=== PATIENT | male | born 1945 | race Caucasian/White ===

== ENCOUNTER 2018-07-25 23:35 | Observation (INO) | payer MEDICARE ==
[~2018-07-25 23:35] MED LIST: ISOVUE-370 76%-LOCM 1 ML ONE
[2018-07-26] MEDS ORDERED: Morphine 4 MG/ML VIAL ONE ×2 (00:01→00:50)
[2018-07-26 00:13] LABS: #Eosinphils 0.1 thou/uL (0.0-0.7); #Monocytes 0.6 thou/uL (0.11-0.59); #Neutrophils 12.1 thou/uL (1.40-6.50); %Basophils 0.1 % (0.0-1.0); %Eosinophils 0.4 % (0.0-10.0); %Monocytes 4.2 % (0.0-10.0); %Neutrophils 88.3 % (42.0-75.0); Hemoglobin 14.7 g/dL (14.0-18.0); Mean Corpuscular HGB CONC 32.8 g/dL (32.0-36.0); Mean Corpuscular Hemoglobin 28.8 pg (27.0-31.0); Mean Corpuscular Volume 87.6 fL (78.0-98.0); Mean Platelet Volume 7.5 fL (7.4-10.4); Platelet Count 242 thou/uL (130-400); RBC Distribution Width 12.2 % (11.5-14.5); Red Blood Cell (RBC) Count 5.13 mill/uL (4.70-6.10); White Blood Cell (WBC) Count 13.7 thou/uL (4.8-10.8)
[2018-07-26 00:33] LABS: ALT (SGPT) 34 U/L (8-55); AST (SGOT) 23 U/L (5-34); Albumin 4.3 g/dL (3.4-4.8); Alkaline Phosphatase 170 U/L (40-150); Anion Gap 15 mmol/L (10-20); BUN (Urea Nitrogen) 26 mg/dL (8.4-25.7); Bilirubin, Total 1.3 mg/dL (0.2-1.2); Calc. Creatinine Clearance 0 mL/min (70-130); Calcium 10.2 mg/dL (7.8-10.44); Carbon Dioxide 25 mmol/L (23-31); Chloride 105 mmol/L (98-107); Estimated GFR-MDRD 75; Glucose 144 mg/dL (83-110); Lipase 17 U/L (8-78); Potassium 3.7 mmol/L (3.5-5.1); Protein, Total 7.3 g/dL (5.8-8.1); Sodium 141 mmol/L (136-145)
[2018-07-26 01:17] LABS: Bilirubin Negative (Negative); Blood, Urine Moderate (Negative); Clarity CLOUDY (Clear); Glucose, Urine (Dipstick) Negative (Negative); Leukocyte Negative (Negative); Nitrite Negative (Negative); Protein, Urine (Dipstick) Negative (Neg-Trace); Specific Gravity, Urine 1.012 (1.002-1.036); Urobilinogen 0.2 mg/dL (0.2-1.0); pH, Urine 7.5 (5.0-9.0)
[2018-07-26 01:20] LABS: Bacteria/HPF None Seen HPF (None Seen); Hyaline Casts/LPF 0-3 HYALINE CAST LPF (0-3 Hyaline); Pathc Cast-AUWi Flag 0.27 (0-2.49); RBC/HPF 21-50 HPF (0-3); Squamous Epithelial 0-3 HPF (0-3); WBC/HPF 0-3 HPF (0-3)
[2018-07-26] MEDS ORDERED: Bisacodyl 5 MG TAB PO PRN (02:27)
[2018-07-26] MEDS ORDERED: Senokot S 8.6-50 MG TAB PO PRN (02:27)
[2018-07-26] MEDS ORDERED: Diabetic Tussin 200 MG/10 ML UDCUP PO PRN (02:27)
[2018-07-26] MEDS ORDERED: Ondansetron PF 4 MG/2 ML Vial IVP PRN ×2 (02:27)
[2018-07-26] MEDS ORDERED: HYDROcodone/Acetaminophen 5/325 mg Tablet PO PRN ×2 (02:27)
[2018-07-26] MEDS ORDERED: Acetaminophen 325 MG TAB PO PRN (02:27)
[2018-07-26] MEDS ORDERED: hydrALAZINE 20 MG/ML VIAL SLOW IVP PRN (02:27)
[2018-07-26] MEDS ORDERED: Sodium Chloride 0.65% Nasal 44 ML BOT EA NARE PRN (02:27)
[2018-07-26] MEDS ORDERED: Acetaminophen 650 MG Suppository PR PRN (02:27)
[2018-07-26] MEDS ORDERED: cloNIDine 0.1 MG TAB PO PRN (02:27)
[2018-07-26] MEDS ORDERED: Benzonatate 100 MG CAP PO PRN (02:27)
[2018-07-26] MEDS ORDERED: Dextrose 50% Abboject 50 ML SYRINGE SLOW IVP PRN (02:29)
[2018-07-26] MEDS ORDERED: HumaLOG 300 UNITS/3 ML VIAL SC PRN ×2 (02:29)
[2018-07-26] MEDS ORDERED: Dextrose 5% in Water 1,000 ML IV PRN (02:29)
[2018-07-26] MEDS ORDERED: Morphine 4 MG/ML VIAL SLOW IVP PRN (02:30)
[2018-07-26] MEDS ORDERED: Sodium Chloride 0.9% 1,000 ML IV SCH (02:30)
[2018-07-26] MEDS ORDERED: Morphine 2 MG/ML SYRINGE ONE (02:44)
[2018-07-26] MEDS ORDERED: Tamsulosin HCl 0.4 MG CAP PO SCH ×2 (02:45→21:00)
[2018-07-26] MEDS ORDERED: Ondansetron PF 4 MG/2 ML Vial ONE ×2 (02:49→10:25)
[2018-07-26] MEDS: Sodium Chloride 0.9% 1,000 ML IV SCH ×3 (03:20→18:22)
[2018-07-26 03:27] VITALS: BMI 24.3
--- NOTE | 2018-07-26 03:51 | HP ---
PRIMARY CARE PHYSICIAN: Dr. Salma Chavarria. CHIEF COMPLAINT: Left-sided flank pain. HISTORY OF PRESENTING ILLNESS: Mr. Shaffer is a 73-year-old male with past medical history of coronary artery disease, hypertension, oxj-pdtsxrh-yvrxehqrt diabetes mellitus, as well as history of benign prostatic hypertrophy and oral cancer, who presented to the emergency room with above-mentioned complaint. History is mainly obtained by the patient himself and electronic medical records have been reviewed. History is supplemented by his present at the bedside. Mr. Shaffer reports that he has been having left-sided pain mainly in the flank coming to the front starting about 8 o'clock last night. He also has had one episode of vomiting yesterday. He denies any recent illnesses. No fevers, chills, cough, runny nose, or sore throat. He denies any abdominal pain or diarrhea. He denies any hematuria. His reports that he "always has had problem with urination." His urologist is Dr. Horn, and he has been worked up in the past with cystoscopies and all. His last one was done in 2016 with pathology negative for any malignancy. Upon presentation to the emergency room, he was hemodynamically stable with a blood pressure of 143/86, pulse of 66, and he was afebrile. His initial examination included a CT scan of the abdomen and pelvis, which showed left-sided hydronephrosis and hydroureter. A centimeter proximal ureteral stone was also seen. He was given pain medications and IV fluids and is now being admitted for further evaluation and care on the medical floor. PAST MEDICAL HISTORY: 1. Coronary artery disease, stable. 2. Dyslipidemia. 3. Hypertension. 4. History of oral cancer, status post resection and chemotherapy. 5. History of tobacco abuse. He quit smoking about 15 years ago. 6. Ezr-davhque-qlvttoyuw diabetes mellitus. PAST SURGICAL HISTORY: 1. Hernia repair. 2. Prostate intervention. 3. Cystoscopy in 2016. CODE STATUS: Full code discussed with the patient in detail. SOCIAL HISTORY: He quit smoking in 1984. He has no history of drug or alcohol abuse. He is and lives with his . FAMILY HISTORY: Significant for mother who has had diabetes. She is . ALLERGIES: NO KNOWN MEDICATION ALLERGIES. CURRENT MEDICATIONS: As follows: 1. Aspirin 81 mg daily. 2. Atenolol 100 mg daily. 3. Lisinopril/hydrochlorothiazide 10/12.5 mg b.i.d. 4. Atorvastatin 10 mg daily. 5. Metformin 500 mg b.i.d. REVIEW OF SYSTEMS: A 14-point review of system is done, it is negative except for those mentioned in the history and physical. LABORATORY DATA: His CBC shows WBCs of 13.7, neutrophils 88%. Serum chemistry showed BUN 26, blood sugar 144, total bilirubin 1.3, alkaline phosphatase 170, otherwise unremarkable. Urinalysis show moderate blood with rbcs without any bacteria. CT scan of the abdomen and pelvis as per the HPI. PHYSICAL EXAMINATION: VITAL SIGNS: Upon presentation blood pressure 143/86, pulse of 66, respirations 17, temperature 98.0, saturating 95% on 2 L oxygen. GENERAL: He is in no acute distress. He is awake, alert, and oriented x3. HEENT: Mucous membrane is moist and pink. No oropharyngeal exudate or erythema. Head is normocephalic and atraumatic. Pupils are equal and reactive to light and accommodation. Extraocular movement intact. NECK: Supple without any lymphadenopathy, JVD, or bruit. CHEST: Clear to auscultation without any wheezing, rales, or rhonchi. HEART: Rhythm is regular without any murmurs, rubs, or gallops. ABDOMEN: Soft, nontender, and nondistended with positive bowel sound. He has some left CVA tenderness. EXTREMITIES: Free of any cyanosis, clubbing, or edema. NEUROLOGICAL: Examination is nonfocal. SKIN: Free of any rashes or bruises, feels warm and dry to touch. IMPRESSION AND PLAN: 1. Renal colic. The patient has a left ureteral stone with left hydronephrosis. He will be admitted for pain control. IV fluids. We will start him on Flomax and consult Urology in the morning. He most likely would need a stent placement with or without cystoscopy. He is currently hemodynamically stable. Urine has been obtained for culture. At this time, he does not appear to have any other signs or symptoms of infection. 2. History of coronary artery disease. Restart his atenolol. Hold his aspirin in case he needs any procedures in the morning, and we will also hold his lisinopril/hydrochlorothiazide for mild prerenal azotemia at this time. 3. History of nyl-xnsbfyj-xcysrsghh diabetes mellitus. The patient will be n.p.o. for any urological procedures in the morning. We will hold his metformin for now and start him on insulin sliding scale with frequent Accu-Cheks. 4. Hypertension, currently controlled. Restart home medications as above. 5. History of oral cancer. 6. Deep venous thrombosis and gastrointestinal prophylaxis, on p.r.n. medications. DISPOSITION: Mr. Shaffer is currently being admitted under observation status for renal colic, left-sided nephrolithiasis, hydroureter, and hydronephrosis. Further management will depend upon his clinical course. He is hemodynamically stable at this time. Job ID: [id number]
[2018-07-26 06:05] LABS: #Lymphocytes 0.7 thou/uL (1.20-3.40); #Monocytes 0.5 thou/uL (0.11-0.59); #Neutrophils 11.6 thou/uL (1.40-6.50); %Basophils 0.1 % (0.0-1.0); %Eosinophils 0.1 % (0.0-10.0); %Lymphocytes 5.7 % (21.0-51.0); %Neutrophils 90.2 % (42.0-75.0); Hemoglobin 14.5 g/dL (14.0-18.0); Mean Corpuscular HGB CONC 32.9 g/dL (32.0-36.0); Mean Corpuscular Volume 88.1 fL (78.0-98.0); Mean Platelet Volume 7.6 fL (7.4-10.4); Platelet Count 225 thou/uL (130-400); RBC Distribution Width 12.1 % (11.5-14.5); Red Blood Cell (RBC) Count 5.02 mill/uL (4.70-6.10); White Blood Cell (WBC) Count 12.9 thou/uL (4.8-10.8)
[2018-07-26 06:17] LABS: Anion Gap 13 mmol/L (10-20); BUN (Urea Nitrogen) 23 mg/dL (8.4-25.7); Calc. Creatinine Clearance 81 mL/min (70-130); Calcium 9.6 mg/dL (7.8-10.44); Carbon Dioxide 24 mmol/L (23-31); Chloride 107 mmol/L (98-107); Estimated GFR-MDRD 80; Glucose 166 mg/dL (83-110); Potassium 3.7 mmol/L (3.5-5.1); Sodium 140 mmol/L (136-145)
--- NOTE | 2018-07-26 07:44 | CT ---
PRELIMINARY REPORT/[facility]/EMERGENCY AFTER HOURS PROCEDURE: EXAM: CT Abdomen and Pelvis With Contrast EXAM DATE/TIME: 07/26/2018 1:07 AM CLINICAL HISTORY: 73 years old, male; Pain; Abdominal pain; Acute; Patient HX: Analilia presents to ed with C/O l flank pain onset at 08: 00 after eating food associated with vomiting x1 today. TECHNIQUE: Imaging protocol: Axial computed tomography images of the abdomen and pelvis with intravenous contrast. Coronal reformatted images were created and reviewed. COMPARISON: No relevant prior studies available. FINDINGS: Lower thorax: Right lower lobe 6 mm pulmonary nodule. Mild bibasilar atelectasis. Moderate to large hiatal hernia. ABDOMEN: Liver: Subcentimeter hypodensity in the left lobe of the liver is too small to characterize. Gallbladder and bile ducts: No calcified stones. No ductal dilation. Pancreas: No mass or ductal dilation. Spleen: No mass. Adrenals: No mass. Kidneys and ureters: Several hypodensities in the right kidney likely representing cysts, the largest measures 1.9 cm. There is a 1 x 0.5 cm stone in the left mid ureter at the L4-L5 level resulting in mild to moderate hydroureteronephrosis and perinephric fat stranding. There is a 3 mm nonobstructing stone in the right kidney. There is a 2 mm stone in the inferior pole the left kidney. Simple left renal cysts, the largest measures 2 cm. Stomach and bowel: Colonic diverticulosis. No evidence of obstruction or bowel wall thickening. Appendix: Normal appendix. PELVIS: Bladder: Normal. Reproductive: The prostate is enlarged and contains coarse calcifications. ABDOMEN and PELVIS: Intraperitoneal space: No free air or free fluid. Bones/joints: No suspicious bone lesions. Soft tissues: Bilateral fat containing inguinal hernias, right greater than left. Vasculature: Moderate atherosclerotic changes of the abdominal aorta with minimal aneurysmal dilation up to 2.8 cm. Lymph nodes: No lymphadenopathy. IMPRESSION: 1. There is a 1 x 0.5 cm stone in the mid left ureter resulting in mild to moderate hydroureteronephrosis 2. Bilateral nephrolithiasis. 3. Prostatomegaly. 4. 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 Defer to on-site Radiologist for follow-up recommendations. 5. Right lower lobe 6 mm pulmonary nodule. Defer to on-site Radiologist for follow-up recommendations. Thank you for allowing us to participate in the care of your patient. Dictated and Authenticated by: Astrid Streeter MD 07/26/2018 2:28 AM Central Time ([place] & [place]) FINAL REPORT CT ABDOMEN AND PELVIS WITH IV CONTRAST PERFORMED ON AN EMERGENCY BASIS: Date: 07/26/18 Time: 0109 hours HISTORY: Left lower quadrant pain. COMPARISON: 02/27/2015. FINDINGS/IMPRESSION: I agree with the preliminary report by Dr. Streeter from [facility]. Partial obstruction at a 1. 0 x 0.5 cm mid left ureteral calculus. Additional tiny nonobstructing bilateral renal calculi. Atherosclerosis. No evidence of bowel obstruction. The small noncalcified subpleural nodule at the right lateral posterior lung base is stable compared to 02/27/2015. No special follow-up is necessary. Code QA. Transcribed Date/Time: 07/26/2018 8:27 AM
[2018-07-26] MEDS: Atenolol 50 MG TAB PO SCH (08:16)
[2018-07-26] MEDS: Famotidine 20 MG TAB PO SCH ×2 (08:17→20:16)
[2018-07-26] MEDS ORDERED: Non-Formulary Item 1 EACH (Atenolol [Atenolol] 100 MG) PO SCH (09:00)
[2018-07-26] MEDS ORDERED: Lidocaine 1% PF 5 ML VIAL ONE (10:25)
[2018-07-26] MEDS ORDERED: PROPOFOL 200 MG/20 ML VIAL ONE (10:25)
[2018-07-26] MEDS ORDERED: Iothalamate Meglumine 60% 50 ML VIAL FS ONE (12:40)
[2018-07-26] MEDS ORDERED: Fentanyl 100 MCG/2 ML VIAL ONE (12:50)
[2018-07-26] MEDS ORDERED: Promethazine HCl 25 MG/ML VIAL IM PRN (13:56)
[2018-07-26] MEDS ORDERED: Ondansetron HCl/PF 4 MG/2 ML Vial IVP PRN (13:56)
[2018-07-26] MEDS ORDERED: Promethazine HCl 25 MG/ML VIAL SLOW IVP PRN (13:56)
[2018-07-26] MEDS ORDERED: Phenazopyridine HCl 97.5 MG TABLET PO PRN (16:16)
--- NOTE | 2018-07-26 16:24 | RAD ---
XR IVP Retrograde HISTORY:Stent placement COMPARISON: None. FINDINGS: A series of 7 film shows stent placement. The proximal end of the stent is in the lower jayesh e collecting system of the kidney. The distal end of the stent is not seen on these views. IMPRESSION: Placement of stent.
--- NOTE | 2018-07-26 16:49 | CON ---
DATE OF CONSULTATION: 07/26/2018 HISTORY OF PRESENT ILLNESS: This is a 73-year-old male, who was admitted by the hospitalist to the ER last night with left mid ureteral stone 1 cm largest diameter and severe left colic. He is a patient of Dr. Horn. Dr. Horn is away today, so they asked me to see him this morning. He has been n.p.o. after midnight. He has had pain through the night, as well as this morning. His CAT scan was reviewed and he has some left-sided hydronephrosis down to left mid ureteral stone. His creatinine is normal. White count was mildly elevated. His urinalysis just showed red cells, but no white cells. He has not had any fever or abnormal vital signs through the night. PAST MEDICAL HISTORY: He does have a history of coronary artery disease, hypertension, diabetes, and hyperlipidemia. PAST SURGICAL HISTORY: Includes prostate surgery, TUR by Dr. Horn, hernia repair. He has also had bladder stones removed. SOCIAL HISTORY: He quit smoking a number of years ago. MEDICATIONS: His regular medicines were, 1. Atorvastatin. 2. Lisinopril. 3. Hydrochlorothiazide. 4. Metformin. 5. Aspirin, just a low dose. 6. Atenolol. He is not circumcised, but he has no phimosis. Testicles are descended without mass or tenderness. There is no rebound or guarding on abdominal exam. IMPRESSION: Left mid ureteral stone with colic, fairly large stone. PLAN: Plan will be for cysto, left retrograde, left stent. This was discussed and received 2 g of Ancef continuous miner. Job ID: [id number]
--- NOTE | 2018-07-26 19:45 | OP ---
DATE OF PROCEDURE: 07/26/2018 PREOPERATIVE DIAGNOSIS: Left ureteral stone. POSTOPERATIVE DIAGNOSES: Left ureteral stone and bladder stone and prostatic urethral stone. PROCEDURES PERFORMED: Cysto, retrieval of bladder and prostatic urethral stone, left retrograde, and left stent. ANESTHETIC: General with oral obturator. SPECIMENS REMOVED: Stones x2, which were given to his . EBL: Minimal. DRAINS: 6 x 24 Polaris double-J stent without a string. FINDINGS: There was no significant evidence of stricture disease, perhaps some slight narrowing at the bulb very short and easily passed with a 22-Iranian sheath. The prostate showed evidence of prior resection. The bladder had 1 bladder stone, probably a little bit over a centimeter in size. There was also a prostatic urethral stone adherent to the wall of prostate that was knocked into the bladder. There was some debris on the floor of the bladder. There was no evidence of any bladder tumors or fistulas. Retrograde study on the supervisor soldering showed contrast coming down to the mid left ureteral stone. Retrograde study showed a normal ureter up to the level of the stone. We were able to get bladder stone with a straight tipped Glidewire and we were able to pass a 6 x 24 left double-J stent. DESCRIPTION OF PROCEDURE: Obtained written and verbal consent from the patient, after receiving IV Ancef, he was taken to the operating suite. He was placed in a supine position on the treatment table. PlexiPulses were placed on his lower extremities and turned on. He was given a general anesthetic and oral obturator intubation. He was then placed in the dorsal lithotomy position and sterilely prepped and draped. Cystoscopy was performed with a 22-Iranian sheath. This was well lubricated and passed under direct vision through the male urethra into the urinary bladder with aid of a 30 degree lens and video camera and monitor. Findings were as above. Prostatic urethral stone was knocked off the wall of the prostate into the bladder. We used a pair of flexible grasping forceps and removed both of the stones. There was some white soft fluffy debris on the floor of the bladder, which was not removed, but was broken up and allowed to drain out. The left ureteral orifice was identified. Green Inspector KUB was taken with the fluoroscopy unit. The guidewire was fed up the left ureter up to level the stone, would not go by the stone. A 5-Iranian Kenna catheter was advanced up to this level and the wire would still not go by. So, we went ahead and removed the wire, injected contrast was seen to be a fairly tight area of impaction. We brought in the angle of a straight Glidewire and we were able to easily get this by the stone and then were able to easily get a 5-Iranian Kenna catheter by the stone, -into the area of the renal pelvis. The Glidewire was removed and the guidewire was replaced. The open-ended catheter was removed and then we placed a 6 x 24 Polaris double-J stent over the guidewire, pushing up in the place with aid of a pusher, so its proximal end coiled in the renal pelvis and its distal end coiled in the bladder when the wire was removed. The patient had a slightly bifid system and actually coiled within the lower pole system of the bifid system. It appeared to be effluxing nicely. The bladder was drained. The instruments were removed. He was taken out of the dorsal lithotomy position, awakened, extubated, and taken by stretcher to recovery room. Job ID: [id number]
--- NOTE | 2018-07-26 22:15 | PDOC.PN ---
- Subjective Encounter Start Date: 07/26/18 Encounter Start Time: 17:00 Complained of some nausea after trying to eat after his procedure. Vomited a little. Not bad now. No pain. - Objective Vital Signs & Weight: Vital Signs (12 hours) Temp Pulse Resp BP BP Pulse Ox 07/26/18 20:00 98.1 F 59 L 18 129/66 92 L 07/26/18 16:20 55 L 16 140/71 93 L 07/26/18 14:20 97.7 F 56 L 16 135/71 97 Weight Weight 179 lb 1.6 oz I&O: 07/25/18 07/26/18 07/27/18 06:59 06:59 06:59 Intake Total 405 1002 Output Total 425 400 Balance -20 602 Result Diagrams: 07/26/18 05:07 07/26/18 05:07 Additional Labs: Accuchecks 07/26/18 07/26/18 07/26/18 20:28 15:26 05:26 POC Glucose 131 H 138 H 147 H Phys Exam - Physical Examination Constitutional: NAD Respiratory: no wheezing, no rales, no rhonchi, clear to auscultation bilateral Cardiovascular: RRR, no significant murmur, no rub Gastrointestinal: soft, non-tender, no distention Musculoskeletal: no edema Neurological: non-focal Psychiatric: normal affect, A&O x 3 Skin: normal turgor Dx/Plan (1) Ureterolithiasis Code(s): N20.1 - CALCULUS OF URETER Status: Acute (2) Hydroureter Code(s): N13.4 - HYDROURETER Status: Acute (3) Renal colic Code(s): N23 - UNSPECIFIED RENAL COLIC Status: Acute (4) Nausea & vomiting Code(s): R11.2 - NAUSEA WITH VOMITING, UNSPECIFIED Status: Acute (5) CAD (coronary artery disease) Code(s): I25.10 - ATHSCL HEART DISEASE OF [place] CORONARY ARTERY W/O ANG PCTRS Status: Acute (6) Benign essential hypertension Code(s): I10 - ESSENTIAL (PRIMARY) HYPERTENSION Status: Acute - Plan * Has Rx for pyridium and macrobid in the chart. * Will continue to monitor and hydrate until the nausea resolves. * Can discharge when he can tolerate po's.
[2018-07-27] MEDS: Sodium Chloride 0.9% 1,000 ML IV SCH (06:35)
[2018-07-27 08:10] VITALS: BP 153/75; TEMP 98.3
[2018-07-27] MEDS: Atenolol 50 MG TAB PO SCH (09:01)
[2018-07-27] MEDS: Famotidine 20 MG TAB PO SCH (09:01)
--- NOTE | 2018-07-29 03:37 | DIS ---
DATE OF ADMISSION: 07/26/2018 DATE OF DISCHARGE: 07/27/2018 DISCHARGE DIAGNOSES: 1. Left renal colic. 2. Left mid ureteral stone. 3. History of coronary artery disease. 4. Hypertension. 5. History of oral cancer. HISTORY OF PRESENT ILLNESS: The patient is a 73-year-old male, who presented via the emergency department complaining of left-sided flank pain. The patient had a history of BPH and oral cancer as well as the coronary artery disease, hypertension, and diabetes as mentioned above. The patient had seen Dr. Horn in the past because of BPH symptoms. The patient's workup in the emergency department included a CT scan, which showed left-sided hydronephrosis and hydroureter. 1 cm proximal ureteral stone was also present. HOSPITAL COURSE: The patient was started on pain medications, fluids, and smooth muscle relaxers. He was seen in consultation by Urology. Dr. Blankenship subsequently took the patient for cystoscopy with retrieval of bladder and prostatic urethral stone and left stent placement. Subsequent to the procedure, the patient was felt to be stable for discharge to home. However, he developed some nausea after attempting to eat. Therefore, he was monitored overnight. By the following morning, he felt well, tolerated a good breakfast. PHYSICAL EXAMINATION: VITAL SIGNS: Temperature was 98.3, pulse 63, respirations 16, O2 saturation 94% on room air, and blood pressure was 153/75. GENERAL: He is awake, alert, oriented, pleasant, and cooperative. HEART: Regular rate and rhythm without murmurs, gallops, or rubs. LUNGS: Clear bilaterally. ABDOMEN: Soft, nontender, and nondistended with positive bowel sounds. EXTREMITIES: No edema. DISPOSITION: The patient is discharged to home. ACTIVITY: As tolerated. DIET: He is on no new dietary restrictions. MEDICATIONS: He will be on, 1. Tylenol p.r.n. 2. Macrobid 100 mg b.i.d. 3. Phenazopyridine 200 mg q.6h p.r.n. He will continue, 1. Multivitamins. 2. Atorvastatin. 3. Vitamin C. 4. Fish oil. 5. Lisinopril-hydrochlorothiazide. FOLLOWUP: He is to follow up with Dr. Horn, Dr. Chavarria, and Dr. Blankenship. He can return to the hospital should he have any problems prior to that time. Job ID: [id number]
== END 2018-07-27 11:23 | disposition home or self-care (01) ==
LOC: ERS 23:35 → SURG A 07-26 03:01
PROVIDERS: ADMIT Internal Medicine; ATTEND Internal Medicine
PROC: 0TCB8ZZ Extirpation of Matter from Bladder, Via Natural or Artificial Opening Endoscopic (ICD-10-PCS; principal; 2018-07-26)
PROC: 0T778DZ Dilation of Left Ureter with Intraluminal Device, Via Natural or Artificial Opening Endoscopic (ICD-10-PCS; 2018-07-26)
DX: N13.2 Hydronephrosis with renal and ureteral calculous obstruction (principal); N21.0 Calculus in bladder; N21.1 Calculus in urethra; I70.0 Atherosclerosis of aorta; R91.1 Solitary pulmonary nodule; I25.10 Atherosclerotic heart disease of native coronary artery without angina pectoris; E11.9 Type 2 diabetes mellitus without complications; I10 Essential (primary) hypertension; E78.5 Hyperlipidemia, unspecified; Z90.79 Acquired absence of other genital organ(s); Z87.891 Personal history of nicotine dependence; Z79.82 Long term (current) use of aspirin; Z79.84 Long term (current) use of oral hypoglycemic drugs; Z79.899 Other long term (current) drug therapy
CPT/HCPCS: 52332; 74177; 74420; 80048; 80053; 82962 ×2; 83690; 85025 ×2; 93005; 96361 ×3; 96374; 96375; 96376 ×2; 97139; 99285; C1758; C1769; G0378 ×2; 36415; 36416; 81003; 81015; 93010; J0690; J2001; J2270; J2405; J2704; J3010; Q9961; Q9966

== ENCOUNTER 2018-08-03 07:08 | Day surgery (SDC) | payer MEDICARE ==
[2018-08-02 16:14] VITALS: BMI 26.3
[2018-08-03] MEDS ORDERED: Levofloxacin 500 mg/D5W 100 ml Premix Bag ONE (07:42)
--- NOTE | 2018-08-03 08:13 | RAD ---
EXAM: XR Abdomen 1 View/KUB PROVIDED CLINICAL HISTORY: Cystogram stent placement COMPARISON: 07/26/2018 FINDINGS: A left renal stent is noted in place which was also seen on retrograde urogram study on 07/26/2018. Ed wel overlies the proximal portion of the stent. Proximal left ureteral calculus is difficult to definitively visualized, but there is increased density focus which could be related to overlying bow el or possibly calculus adjacent to the ureteral stent. There is a punctate calculus overlying the inferior pole left kidney. Right renal shadow is obscured due to overlying bowel gas. Moderate amount of retained fecal material is seen in the ascending colon. Bowel gas pattern is otherwise nonspecific. Degenerative changes noted in the spine. IMPRESSION: 1. Left ureteral stent in place. Proximal left ureteral calculus noted on prior CT exam 07/26/2018 is difficult to definitively visualize on this examination but may potentially be adjacent to the ureteral stent at the level of the superior endplate of L4 vertebral body. However, this difficult to adequately evaluate due to overlying bowel. 2. Left nephrolithiasis.
[2018-08-03] MEDS ORDERED: Fentanyl 100 MCG/2 ML VIAL ONE (10:16)
[2018-08-03] MEDS ORDERED: B & O ONE (10:22)
[2018-08-03] MEDS ORDERED: Iothalamate Meglumine 60% 50 ML VIAL FS ONE (10:22)
--- NOTE | 2018-08-03 14:46 | OP ---
DATE OF PROCEDURE: 08/03/2018 SERVICE: Urology. PREOPERATIVE DIAGNOSIS: Left ureteral stone. POSTOPERATIVE DIAGNOSIS: Left ureteral renal stone. PROCEDURES PERFORMED: Left ureteroscopy, laser lithotripsy, basket extraction of stone, and placement of a 6 x 26 double-J stent. INDICATION FOR PROCEDURE: Mr. Shaffer is a 73-year-old white male with a history of nephrolithiasis, who came into the ER approximately a week ago and was stented by Dr. Blankenship. He had a prostatic urethral stone removed at that time and had noted 1 cm stone in the left ureter. After being discharged home, he is now following up with me for definitive stone management. Risks and benefits of the surgery were previously discussed, and he has agreed to proceed forward. DESCRIPTION OF PROCEDURE: After identification of armband and verification of consent, the patient was brought back to the operating room. He underwent general anesthesia with an LMA. He was placed in dorsal lithotomy position and prepped and draped in usual sterile fashion. The 22-Lao rigid cystoscope was introduced per urethra into the bladder. It was noted that the patient has had a previous TURP, which was still widely patent. There was a mild amount of regrowth, but no calcifications. The stent was seen emanating from the left ureteral orifice, which was grasped with flexible graspers and removed to the level of the urethral meatus. The stent was then used to guide a 0.035 Sensor wire, which was navigated past the stone into the renal pelvis. The stent was then removed and discarded. A dual-lumen catheter was advanced over the Sensor wire up to the level of the stone and the ureter. An Amplatz Super Stiff wire was then placed through the second lumen past the stone into the renal pelvis. The dual-lumen was then removed. The Sensor wire was affixed to the drapes as a safety wire. An 11/13 x 36 cm ureteral access sheath was then advanced over the Super Stiff wire to the level of the stone. Inner cannula and Super Stiff wire were then removed leaving the outer sheath and the Sensor wire in place. A flexible digital ureteroscope was then passed through the ureteral access sheath into the ureter, at which point the stone was encountered. Using a 365 micron laser fiber, the stone was fragmented into smaller pieces and then a 1.9-Lao ZeroTip Nitinol basket was used to remove the remaining fragments. Upon completion, all stone fragments were removed and the ureter was in very good condition. Ureteroscopy was performed up to the renal pelvis, which was noted to be bifid in nature. The upper moiety does not have any stones and the lower moiety had a small approximately 2 to 3 mm stone in one of the calyces, which was adherent to the wall. This was able to be simply basketed and removed. No additional stones were found. Pull-back ureteroscopy was employed. No additional stones were found in the ureter. The sheath and ureteroscope were then removed, and the cystoscope was then backloaded back into the bladder over the Sensor wire. A 6 x 26 double-J stent was advanced over the Sensor wire up to the level of the renal pelvis. The wire was removed leaving a good curl in the kidney and a good curl in the bladder. The bladder was then emptied, and the cystoscope was removed. The string was left intact on the stent, which was then affixed to the patient's penis using an OpSite. The patient was then taken out of lithotomy, awakened, and taken to PACU for recovery in stable condition. COMPLICATIONS: None. ESTIMATED BLOOD LOSS: Minimal. RETAINED TUBES AND DRAINS: 6 x 26 double-J stent on the left with string attached. SPECIMEN: Stone for stone analysis. DISPOSITION: The patient will be discharged home and follow up with me in approximately 2 to 3 weeks for a postop check. He will be instructed to remove his stent on Monday by gently pulling the string. Job ID: [id number]
[2018-08-03] MEDS ORDERED: ePHEDrine 50 MG/ML VIAL ONE (16:25)
[2018-08-03] MEDS ORDERED: Rocuronium Bromide 10 MG/ML (10ML VIAL) ONE (16:25)
[2018-08-03] MEDS ORDERED: PROPOFOL 200 MG/20 ML VIAL ONE (16:25)
[2018-08-03] MEDS ORDERED: Ondansetron PF 4 MG/2 ML Vial ONE (16:25)
[2018-08-03] MEDS ORDERED: Glycopyrrolate 0.2 MG/ML 5 ML SYRINGE ONE (16:25)
[2018-08-03] MEDS ORDERED: Lidocaine 1% PF 5 ML VIAL ONE (16:25)
[2018-08-08 10:16] LABS: CA Oxalate Dihydrate 20 % (.); CA Oxalate Monohydrate 70 % (.); CA Phosphate 10 % (.); Color Brown (.); Stone Weight 36.4 mg (.)
== END 2018-08-03 14:25 | disposition home or self-care (01) ==
LOC: SDC 07:08
PROVIDERS: ATTEND Urology
PROC: 0TF78ZZ Fragmentation in Left Ureter, Via Natural or Artificial Opening Endoscopic (ICD-10-PCS; principal; 2018-08-03)
PROC: 0T778DZ Dilation of Left Ureter with Intraluminal Device, Via Natural or Artificial Opening Endoscopic (ICD-10-PCS; 2018-08-03)
PROC: 0TC78ZZ Extirpation of Matter from Left Ureter, Via Natural or Artificial Opening Endoscopic (ICD-10-PCS; 2018-08-03)
DX: N20.2 Calculus of kidney with calculus of ureter (principal); Q63.8 Other specified congenital malformations of kidney; I25.10 Atherosclerotic heart disease of native coronary artery without angina pectoris; I10 Essential (primary) hypertension; E11.9 Type 2 diabetes mellitus without complications; E78.5 Hyperlipidemia, unspecified; Z87.891 Personal history of nicotine dependence; Z79.82 Long term (current) use of aspirin; Z79.84 Long term (current) use of oral hypoglycemic drugs; Z79.899 Other long term (current) drug therapy; Z90.79 Acquired absence of other genital organ(s); Z98.890 Other specified postprocedural states
CPT/HCPCS: 52352; 52356; 74018; 76000; 82365; 88300; C1769; J1956; J2001; J2405; J2704; J3010; J3490; Q9961

== ENCOUNTER 2018-09-19 08:38 | Outpatient (CLI) | payer MEDICARE ==
--- NOTE | 2018-09-19 09:25 | ULT ---
RENAL ULTRASOUND: Date: 09/19/2018 COMPARISON: None. HISTORY: Nephrolithiasis. TECHNIQUE: Multiplanar grayscale sonographic imaging of the kidneys and urinary bladder obtained. FINDINGS: Right kidney measures 12.5 x 6.1 x 5.5 cm and left kidney measures 11.5 x 6.2 x 5.1 cm. There is a cy st in the midpole of the right kidney measuring 1.5 x 1.6 x 1.4 cm. There is a cyst in the lower pole of the left kidney measuring 2.1 x 1.9 x 1.7 cm. There is an echogenic focus within the mid pole of the right kidney adjacent to the above-described c yst measuring approximately 4-5 mm, suggesting a small stone. No hydronephrosis is seen. There is a cortical calcification within the mid pole of the left kidney measuring 3-4 mm. There is a renal calculus on the left involving the lower pole measuring 4-5 mm. Urinary bladder appears grossly unremarkable. IMPRESSION: Findings suggesting punctate bilateral renal calculi. No hydronephrosis. No solid renal mass. Transcribed Date/Time: 09/19/2018 10:33 AM
== END 2018-09-19 08:39 | disposition home or self-care (01) ==
LOC: BICULT 08:38
PROVIDERS: ATTEND Urology
DX: N20.0 Calculus of kidney (principal)
CPT/HCPCS: 76770; 81001; 87086

== ENCOUNTER 2018-12-06 06:42 | Day surgery (SDC) | payer MEDICARE ==
[2018-12-05 10:41] VITALS: BMI 24.7
[2018-12-06] MEDS ORDERED: Ketorolac Tromethamine 30 MG/ML VIAL ONE (08:09)
[2018-12-06] MEDS ORDERED: Fentanyl 250 MCG/5 ML VIAL ONE (09:49)
[2018-12-06] MEDS ORDERED: Bupivacaine/Epinephrine 0.25% 30 ML VIAL ONE (10:00)
[2018-12-06] MEDS ORDERED: PROPOFOL 200 MG/20 ML VIAL ONE (10:41)
[2018-12-06] MEDS ORDERED: Ondansetron PF 4 MG/2 ML Vial ONE (10:41)
[2018-12-06] MEDS ORDERED: Lidocaine 1% PF 5 ML VIAL ONE (10:41)
[2018-12-06] MEDS ORDERED: Dexamethasone 20 MG/5 ML VIAL ONE (10:41)
[2018-12-06] MEDS ORDERED: Rocuronium Bromide 10 MG/ML (10ML VIAL) ONE (10:41)
[2018-12-06] MEDS ORDERED: ePHEDrine 50 MG/ML VIAL ONE (10:41)
[2018-12-06] MEDS ORDERED: HYDROcodone/Acetaminophen 5/325 mg Tablet ONE (15:02)
--- NOTE | 2018-12-07 03:48 | OP ---
DATE OF PROCEDURE: 12/06/2018 PREOPERATIVE DIAGNOSES: Right inguinal hernia and recurrent left inguinal hernia. POSTOPERATIVE DIAGNOSES: Right inguinal hernia and recurrent left inguinal hernia with finding of a substantial right indirect hernia. The patient had intraperitoneal mesh on the left side with a recurrent indirect left inguinal hernia. OPERATION PERFORMED: Robotic right inguinal hernia repair, robotic repair of recurrent left inguinal hernia. ANESTHESIA: General endotracheal. INDICATIONS: The patient is a 73-year-old white male. He presented with an obvious visible and palpable right inguinal hernia. Examination revealed a palpable left inguinal hernia as well. He has a history of a prior left inguinal hernia repair. Taken to the operating at this time for robotic repair. DESCRIPTION OF OPERATION: Informed consent was obtained. The patient was taken to the operating room where general endotracheal anesthesia was obtained with the patient in supine position. Orozco catheter was placed, abdomen was prepped with ChloraPrep and draped in sterile fashion. Local anesthetic was infiltrated and an 11 mm supraumbilical incision was created through which a Veress needle was passed into the peritoneal cavity, pneumoperitoneum established using carbon dioxide up to pressure of 15 mmHg. An 11 mm trocar port was passed through the same incision and laparoscopic camera was passed through this port. Under direct vision, two additional 8 mm robotic ports were placed at the supraumbilical level on either side of midline. The robot was docked to the 3 ports and the camera and the operation were continued from the robotic console. The initial examination of the pelvis and inguinal areas revealed obvious visible right inguinal hernia. It was clearly indirect. On the left side, there was intraperitoneal mesh that was fairly densely adherent to a segment of sigmoid colon. The hernia was not immediately apparent because of this process. Attention was turned first to the right side. A transverse peritoneal incision was created and preperitoneal dissection was carried inferiorly. The pubic tubercle was dissected medially. The iliopubic tract was dissected laterally. The hernia sac was dissected away from the cord structures and a wide peritoneal clearance was carried out posteriorly. The patient had an obvious indirect hernia defect. A large 3DMax mesh patch was obtained and placed in the preperitoneal space and secured in place with 2 interrupted sutures of 3-0 Vicryl. The peritoneum was then closed with a running suture of 3-0 Stratafix. The patient did have a cord lipoma and it was dissected out of the cord as well and this was incorporated into the peritoneal closure. Attention was turned to the left side. A mirror-image transverse peritoneal incision was created. Dissection was carried inferiorly. Again, laterally, the iliopubic tract was dissected. With difficulty, the pubic tubercle was dissected medially. There was substantial scar tissue that made dissection difficult in this area. The mesh that was visualized adherent to the colon was entirely extraperitoneal and this did not inhibit the dissection of the abdominal wall or cord structures. The peritoneum was dissected widely off the cord structures. There did appear to be some other mesh potentially up at the level of the internal ring. There was no substantial cord lipoma on the left. There was evidence of a recurrent indirect hernia on the left. A left-sided 3DMax mesh patch was obtained and as had been done on the right side, it was secured in place with interrupted sutures of 3-0 Vicryl. The peritoneum was again closed with running suture of 3-0 Stratafix. The fascia at the 12 mm port site was closed with 0 Vicryl suture using a GraNee needle. All ports and instruments were removed under direct vision. Pneumoperitoneum was carefully evacuated. A 0.25% Marcaine with epinephrine was infiltrated into each port site. Skin edges approximated with 4-0 Monocryl subcuticular suture and Dermabond was placed externally. No attempt was made to dissect the bowel away from the mesh as I felt this would likely lead to colon injury, which I did not want to have while new mesh was being placed. Job ID: [id number]
== END 2018-12-06 15:26 | disposition home or self-care (01) ==
LOC: SDC 06:42
PROVIDERS: ATTEND Specialist
PROC: 0YU64JZ Supplement Left Inguinal Region with Synthetic Substitute, Percutaneous Endoscopic Approach (ICD-10-PCS; principal; 2018-12-06)
PROC: 0YU54JZ Supplement Right Inguinal Region with Synthetic Substitute, Percutaneous Endoscopic Approach (ICD-10-PCS; 2018-12-06)
DX: K40.91 Unilateral inguinal hernia, without obstruction or gangrene, recurrent (principal); K40.90 Unilateral inguinal hernia, without obstruction or gangrene, not specified as recurrent; D17.6 Benign lipomatous neoplasm of spermatic cord; I10 Essential (primary) hypertension; E78.5 Hyperlipidemia, unspecified; I25.10 Atherosclerotic heart disease of native coronary artery without angina pectoris; I25.2 Old myocardial infarction; K21.9 Gastro-esophageal reflux disease without esophagitis; Z87.891 Personal history of nicotine dependence; Z79.84 Long term (current) use of oral hypoglycemic drugs; Z79.899 Other long term (current) drug therapy; Z79.82 Long term (current) use of aspirin
CPT/HCPCS: 49650; 49651; 93005; C1781; 93010; J0131; J0690; J1885; J3010

== ENCOUNTER 2019-02-17 16:01 | Emergency (ER) | payer MEDICARE ==
[2019-02-17] MEDS ORDERED: Iopamidol-370 76% 500 ML 1 ML ONE (16:56)
[2019-02-17] MEDS ORDERED: Morphine 4 MG/ML VIAL ONE (17:19)
[2019-02-17] MEDS ORDERED: Ondansetron PF 4 MG/2 ML Vial ONE (17:19)
[2019-02-17 17:21] LABS: #Eosinphils 0.1 thou/uL (0.0-0.7); #Lymphocytes 1.1 thou/uL (1.20-3.40); #Monocytes 0.8 thou/uL (0.11-0.59); #Neutrophils 6.7 thou/uL (1.40-6.50); %Basophils 0.2 % (0.0-1.0); %Eosinophils 0.8 % (0.0-10.0); %Monocytes 9.1 % (0.0-10.0); Hemoglobin 14.6 g/dL (14.0-18.0); Mean Corpuscular HGB CONC 35.1 g/dL (32.0-36.0); Mean Corpuscular Hemoglobin 30.3 pg (27.0-31.0); Mean Corpuscular Volume 86.4 fL (78.0-98.0); Platelet Count 224 thou/uL (130-400); RBC Distribution Width 11.9 % (11.5-14.5); Red Blood Cell (RBC) Count 4.82 mill/uL (4.70-6.10); White Blood Cell (WBC) Count 8.7 thou/uL (4.8-10.8)
[2019-02-17 17:41] LABS: ALT (SGPT) 20 U/L (8-55); AST (SGOT) 14 U/L (5-34); Albumin 4.1 g/dL (3.4-4.8); Alkaline Phosphatase 202 U/L (40-110); Anion Gap 13 mmol/L (10-20); BUN (Urea Nitrogen) 23 mg/dL (8.4-25.7); Calc. Creatinine Clearance 0 mL/min (70-130); Calcium 10.8 mg/dL (7.8-10.44); Carbon Dioxide 23 mmol/L (23-31); Chloride 105 mmol/L (98-107); Estimated GFR-MDRD Greater than 90; Globulin 2.7 g/dL (2.4-3.5); Glucose 113 mg/dL (83-110); Lipase 23 U/L (8-78); Potassium 3.4 mmol/L (3.5-5.1); Protein, Total 6.8 g/dL (5.8-8.1); Sodium 138 mmol/L (136-145)
--- NOTE | 2019-02-17 18:50 | CT ---
CT ABDOMEN WITH CONTRAST CT PELVIS WITH CONTRAST: DATE: 02/17/2019 HISTORY: 73-year-old male with generalized abdominal pain. COMPARISON: 07/26/2018 TECHNIQUE: IV injection of iodinated contrast media: administered. Oral contrast media:Not administered FINDINGS: The previously demonstrated calculus in the left ureter is no longer present. The previously demonstr ated left hydronephrosis has resolved. Again noted are several bilateral renal cysts. Tiny 2 or 3 mm calculus at right renal upper-mid pole calyx remains. No signs of pyelonephritis. Ectasia and athe rosclerotic calcification of infrarenal abdominal aorta without aneurysm. Decompressed urinary bladder. Normal appendix, liver, pancreas, adrenals, and spleen. No small bowel dilation. Degenerativ e disc disease mild to moderate degree throughout multiple levels of lumbar spine. High-grade facet DJD at lower levels. No ascites or pneumoperitoneum. Numerous diverticula throughout the descending c olon without diverticulitis. Nonspecific 1.5 cm diameter round heterogeneously hypodense mass at lower portion of right inguinal canal, superior to the scrotum. New since prior study. Etiology uncer tain. Fat and fat stranding at bilateral inguinal canals suggestive of previous inguinal hernia repairs. 5 mm right lower lobe pulmonary nodule close to major fissure and close to lateral pleural s urface, unchanged since 02/27/2015, and therefore benign. Enlarged prostate. IMPRESSION: 1) small 1.5 cm low-density mass at inferior portion of right inguinal canal, just superior to right scrotum. Unknown etiology and significance. 2) no acute findings within the abdominal cavity or pelvic cavity. 3) several bilateral renal cysts. 4) mild nephrolithiasis consisting of a single right renal calculus. 5) atherosclerosis of abdominal aorta. 6) benign prostatic hyperplasia (this does not necessarily rule out prostate cancer).
== END 2019-02-17 19:13 | disposition home or self-care (01) ==
LOC: ERS 16:01
DX: R19.09 Other intra-abdominal and pelvic swelling, mass and lump (principal); B02.9 Zoster without complications; E11.9 Type 2 diabetes mellitus without complications; I10 Essential (primary) hypertension; Z87.891 Personal history of nicotine dependence; Z79.899 Other long term (current) drug therapy; Z79.84 Long term (current) use of oral hypoglycemic drugs
CPT/HCPCS: 36415; 74177; 80053; 83690; 84484; 85025; 93005; 96361; 96374; 96375; J2270; J2405; Q9967

== ENCOUNTER 2019-04-29 07:25 | Outpatient (CLI) | payer MEDICARE ==
--- NOTE | 2019-04-29 09:02 | ULT ---
EXAM: US Thyroid STANDARD PROVIDED CLINICAL HISTORY: Hyperparathyroidism COMPARISON: None FINDINGS: Right lobe of thyroid gland measures 3.7 cm x 2.3 cm x 1.5 cm with the left lobe measuring 3.7 cm x 1 .8 cm x 1.3 cm. The thyroid isthmus measures 0.4 cm in AP dimensions. Multiple nodules are seen in each lobe of the thyroid gland. Largest nodule in the inferior pole righ t lobe of thyroid gland demonstrates a cystic and solid appearance and measures 0.7 cm in maximal dimensions. 3 additional cystic and slightly heterogeneous nodules are seen involving the midportion and superior pole right lobe of thyroid gland all of which measure 0.4 cm or less. There are 2 separate nodules seen in the left lobe of thyroid gland with the largest heterogeneous no dule seen in the superior pole left lobe of thyroid gland measuring 1.4 cm with a few echogenic foci seen. Smaller hypoechoic nodule in the inferior pole left lobe of thyroid gland measures 0.7 cm. IMPRESSION: TI RADS level 5 - according to ACR guidelines, fine-needle aspiration of the nodule in the superior p ole left lobe of the thyroid gland is recommended.
== END 2019-04-29 07:26 | disposition home or self-care (01) ==
LOC: ULT 07:25
PROVIDERS: ATTEND Internal Medicine Endocrinology, Diabetes & Metabolism
DX: E21.2 Other hyperparathyroidism (principal); E04.1 Nontoxic single thyroid nodule
CPT/HCPCS: 76536

== ENCOUNTER 2019-05-08 08:35 | Outpatient (CLI) | payer MEDICARE ==
--- NOTE | 2019-05-08 13:58 | NM ---
Nuclear medicine parathyroid scan INDICATION: Hyperparathyroidism. Radiopharmaceutical: 25.6 mCi technetium 99m sestamibi IV TECHNIQUE: Planar images were performed earlier at a rate of pharmaceutical administration, 1 hour an d 2 hour with oblique projections as well as SPECT-CT. FINDINGS: On the early images there is a centimeters diffuse symmetric uptake within the thyroid glan d with more accentuated uptake seen within the posterior superior aspect the left thyroid gland. This region does persist with activity on the 1 hour and 2 hour delayed images. This localizes to a s oft tissue nodule that is posterior to the superior pole of the left thyroid gland that measures 1.6 x 2.1 cm. IMPRESSION: Positive nuclear medicine parathyroid scan. There is a 1.6 x 2.1 cm nodule seen posterior to the superior pole left thyroid gland that demonstrat es accentuated early uptake with persistent radionuclide activity on the delayed phase images. This is consistent with an enlarged parathyroid adenoma in the clinical scenario of an elevated PTH.
== END 2019-05-08 08:36 | disposition home or self-care (01) ==
LOC: NM 08:35
PROVIDERS: ATTEND Internal Medicine Endocrinology, Diabetes & Metabolism
DX: E21.3 Hyperparathyroidism, unspecified (principal); E04.1 Nontoxic single thyroid nodule; R94.6 Abnormal results of thyroid function studies
CPT/HCPCS: 78072; A9500

== ENCOUNTER 2019-08-22 12:51 | Outpatient (CLI) | payer MEDICARE ==
--- NOTE | 2019-08-22 16:10 | ULT ---
BILATERAL LOWER EXTREMITY VENOUS DOPPLER ULTRASOUND: 08/22/19 HISTORY: Bilateral lower extremity edema. TECHNIQUE: Celestin scale, color flow and spectral Doppler imaging of the deep venous systems of the lower extremity performed bilaterally. FINDINGS: There is good flow, compression, and augmentation noted in the common femoral, femoral, deep femoral, popliteal, posterior tibial and greater saphenous veins. IMPRESSION: No evidence of DVT in either lower extremity. POS: ERNIEA
== END 2019-08-22 12:52 | disposition home or self-care (01) ==
LOC: ULT 12:51 → MERGE 12:51 → ULT 12:52
PROVIDERS: ATTEND Family Medicine
DX: R60.0 Localized edema (principal)
CPT/HCPCS: 93970

== ENCOUNTER 2022-07-18 11:11 | Outpatient (CLI) | payer OTHER ==
[2022-07-18 13:52] LABS: Bilirubin Neg (Negative); Blood, Urine Negative (Negative); Clarity Clear (Clear); Glucose, Urine (Dipstick) Normal (Negative); Ketone, Urine Negative (Negative); Leukocyte Negative (Negative); Nitrite Negative (Negative); Protein, Urine (Dipstick) Negative (Neg-Trace); Specific Gravity, Urine 1.015 (1.005-1.030); Urobilinogen Normal mg/dL (Less than 2); pH, Urine 6.5 (5.0-9.0)
[2022-07-18 13:55] LABS: Anion Gap 17 mmol/L (10-20); BUN (Urea Nitrogen) 23 mg/dL (8.4-25.7); Calc. Creatinine Clearance 0 mL/min (70-130); Carbon Dioxide 27 mmol/L (23-31); Chloride 102 mmol/L (98-107); Estimated GFR 91; Glucose 120 mg/dL (83-110); Potassium 3.6 mmol/L (3.5-5.1); Sodium 142 mmol/L (136-145)
[2022-07-18 14:03] LABS: Hemoglobin 13.8 g/dL (13.5-17.5); Mean Corpuscular Hemoglobin 29.2 pg (27.0-33.0); Mean Corpuscular Volume 85.8 fl (81.2-95.1); Mean Platelet Volume 9.9 fl (7.4-10.4); Platelet Count 286 10x3/uL (150-450); RBC Distribution Width 13.2 % (11.5-14.5); Red Blood Cell (RBC) Count 4.73 10x6/uL (4.32-5.72); White Blood Cell (WBC) Count 7.9 10x3/uL (3.5-10.5)
[2022-07-18 14:11] LABS: PTT 28.2 sec (22.0-33.0); Prothrombin Time 10.7 sec (9.5-12.1)
[2022-07-18 14:27] LABS: Bacteria/HPF 1+ HPF (None Seen); RBC/HPF 0-3 HPF (0-3); Squamous Epithelial None Seen HPF (0-3); WBC/HPF 0-3 HPF (0-3)
== END 2022-07-18 11:12 | disposition home or self-care (01) ==
LOC: LABBT 11:11
PROVIDERS: ATTEND Urology
DX: Z01.812 Encounter for preprocedural laboratory examination (principal); N40.1 Benign prostatic hyperplasia with lower urinary tract symptoms; R39.15 Urgency of urination; N20.0 Calculus of kidney; K40.20 Bilateral inguinal hernia, without obstruction or gangrene, not specified as recurrent; I25.10 Atherosclerotic heart disease of native coronary artery without angina pectoris
CPT/HCPCS: 80048; 81001; 85027; 85610; 85730; 87086

== ENCOUNTER 2022-07-28 05:48 | Day surgery (SDC) | payer OTHER ==
[2022-07-27 09:32] VITALS: BMI 25.1
[2022-07-28] MEDS ORDERED: fentaNYL PF 100 MCG/2 ML SYRINGE ONE (06:56)
[2022-07-28] MEDS ORDERED: Dexmedetomidine 200 MCG/2 ML VIAL ONE (06:57)
[2022-07-28] MEDS ORDERED: Levofloxacin 500 mg/D5W 100 ml Premix Bag ONE (07:26)
[2022-07-28] MEDS ORDERED: Ondansetron PF 4 MG/2 ML Vial ONE (07:48)
[2022-07-28] MEDS ORDERED: Dexamethasone 20 MG/5 ML VIAL ONE (07:48)
[2022-07-28] MEDS ORDERED: ePHEDrine Sulfate 50 MG/10 ML VIAL ONE (07:48)
[2022-07-28] MEDS ORDERED: PROPOFOL 200 MG/20 ML VIAL ONE (07:48)
[2022-07-28] MEDS ORDERED: Oxybutynin 5 MG TAB ONE (09:06)
== END 2022-07-28 11:50 | disposition home or self-care (01) ==
LOC: SDC 05:48
PROVIDERS: ATTEND Urology
PROC: 0VT08ZZ Resection of Prostate, Via Natural or Artificial Opening Endoscopic (ICD-10-PCS; principal; 2022-07-28)
DX: N40.1 Benign prostatic hyperplasia with lower urinary tract symptoms (principal); N13.8 Other obstructive and reflux uropathy; I25.10 Atherosclerotic heart disease of native coronary artery without angina pectoris; I10 Essential (primary) hypertension; E78.5 Hyperlipidemia, unspecified; E11.9 Type 2 diabetes mellitus without complications; E89.0 Postprocedural hypothyroidism; I25.2 Old myocardial infarction; N39.41 Urge incontinence; R35.0 Frequency of micturition; N32.81 Overactive bladder; K21.9 Gastro-esophageal reflux disease without esophagitis; Z87.891 Personal history of nicotine dependence; Z86.73 Personal history of transient ischemic attack (TIA), and cerebral infarction without residual deficits; Z79.84 Long term (current) use of oral hypoglycemic drugs; Z79.890 Hormone replacement therapy; Z79.899 Other long term (current) drug therapy; Z98.890 Other specified postprocedural states
CPT/HCPCS: 88305; J1100; J1956; J2405; J2704

== ENCOUNTER 2024-02-12 11:22 | Outpatient (CLI) | payer OTHER ==
[2024-02-12 12:56] LABS: #Basophils Less than 0.03 10x3/uL (0.0-0.2); %Basophils 0.1 % (0.0-1.0); %Lymphocytes 24.6 % (21.0-51.0); %Monocytes 10.8 % (0.0-10.0); %Neutrophils 63.1 % (42.0-75.0); Hemoglobin 14.5 g/dL (14.0-18.0); Mean Corpuscular HGB CONC 33.7 g/dL (32.0-36.0); Mean Corpuscular Hemoglobin 28.2 pg (27.0-31.0); Mean Corpuscular Volume 83.5 fL (78.0-98.0); Mean Platelet Volume 9.2 fL (7.4-10.4); Platelet Count 266 10x3/uL (130-400); Red Blood Cell (RBC) Count 5.15 mill/uL (4.70-6.10)
[2024-02-12 13:04] LABS: Bacteria/HPF 1+ HPF (None Seen); Bilirubin Negative (Negative); Blood, Urine Negative (Negative); Clarity Turbid (Clear); Glucose, Urine (Dipstick) Normal (Negative); Ketone, Urine Negative (Negative); Leukocyte 250 Leu/uL (Negative); Nitrite Negative (Negative); Protein, Urine (Dipstick) 20 mg/dL (Neg-Trace); Specific Gravity, Urine 1.015 (1.002-1.036); Squamous Epithelial 0-3 HPF (0-3); Urobilinogen Normal mg/dL (Less than 2); WBC/HPF 21-50 HPF (0-3); pH, Urine 6.5 (5.0-9.0)
[2024-02-12 13:15] LABS: Anion Gap 14 mmol/L (10-20); BUN (Urea Nitrogen) 20 mg/dL (8.4-25.7); Calc. Creatinine Clearance 0 mL/min (70-130); Calcium 9.6 mg/dL (7.8-10.44); Carbon Dioxide 29 mmol/L (23-31); Chloride 102 mmol/L (98-107); Estimated GFR 91; Glucose 118 mg/dL (83-110); Potassium 3.1 mmol/L (3.5-5.1); Sodium 142 mmol/L (136-145)
[2024-02-12 13:31] LABS: Prothrombin Time 13.3 sec (12.0-14.7)
[2024-02-12 13:32] LABS: PTT 31.2 sec (22.9-36.1)
== END 2024-02-12 11:23 | disposition home or self-care (01) ==
LOC: LABBT 11:22
PROVIDERS: ATTEND Urology
DX: Z01.812 Encounter for preprocedural laboratory examination (principal); N40.1 Benign prostatic hyperplasia with lower urinary tract symptoms; N21.0 Calculus in bladder; N20.0 Calculus of kidney; K40.20 Bilateral inguinal hernia, without obstruction or gangrene, not specified as recurrent; I25.10 Atherosclerotic heart disease of native coronary artery without angina pectoris; R39.15 Urgency of urination
CPT/HCPCS: 80048; 81001; 85025; 85610; 85730; 87086

== ENCOUNTER 2024-02-22 09:20 | Day surgery (SDC) | payer OTHER ==
[2024-02-12 12:02] VITALS: BMI 21.5
[2024-02-22] MEDS ORDERED: Lidocaine 1% PF 5 ML VIAL ONE (10:47)
[2024-02-22] MEDS ORDERED: Ondansetron PF 4 MG/2 ML Vial ONE (10:47)
[2024-02-22] MEDS ORDERED: PROPOFOL 20 ML ONE (10:47)
[2024-02-22] MEDS ORDERED: fentaNYL PF 100 MCG/2 ML SYRINGE ONE ×2 (10:49→14:28)
[2024-02-22] MEDS ORDERED: LevoFLOXacin D5W 500 mg (100 mL) BAG ONE (12:27)
[2024-02-22] MEDS ORDERED: Phenazopyridine HCl 100 MG TAB ONE (14:02)
[2024-02-22] MEDS ORDERED: Oxybutynin 5 MG TAB ONE (14:02)
== END 2024-02-22 17:35 | disposition home or self-care (01) ==
LOC: SDC 09:20
PROVIDERS: ATTEND Urology
PROC: 0VT08ZZ Resection of Prostate, Via Natural or Artificial Opening Endoscopic (ICD-10-PCS; principal; 2024-02-22)
PROC: 0TCB8ZZ Extirpation of Matter from Bladder, Via Natural or Artificial Opening Endoscopic (ICD-10-PCS; 2024-02-22)
DX: N40.1 Benign prostatic hyperplasia with lower urinary tract symptoms (principal); N21.0 Calculus in bladder; I27.20 Pulmonary hypertension, unspecified; I25.10 Atherosclerotic heart disease of native coronary artery without angina pectoris; K21.9 Gastro-esophageal reflux disease without esophagitis; Z79.899 Other long term (current) drug therapy
CPT/HCPCS: 52318; 52601; 82365; A4333; J1956; J2405; J2704; 88300; 88305